=== PATIENT | male | born 1985 | race Caucasian/White ===

== ENCOUNTER 2017-02-09 06:12 | Inpatient (IN) | payer BC, OTHER ==
[2017-02-09] MEDS ORDERED: GADOBUTROL 10 ML VIAL IVP ONE (06:33)
[2017-02-09] MEDS ORDERED: LIDOCAINE 1% 2 ML INJ ONE (06:42)
[2017-02-09] MEDS ORDERED: ceFAZolin 2 GM/DEXTROSE 100 ML IV ONE (06:51)
[2017-02-09] MEDS ORDERED: LIDOCAINE 1% 2 ML INJ ID PRN (07:01)
[2017-02-09] MEDS ORDERED: LR 1,000 ML IV ONE (07:01)
[2017-02-09] MEDS ORDERED: BACITRACIN ZINC 14.2 GM OINTTUBE TP ONE (07:32)
[2017-02-09] MEDS ORDERED: METHYLENE BLUE 0.5% 50 MG/10 ML AMP ONE (07:32)
[2017-02-09] MEDS ORDERED: THROMBIN (BOVINE) 5,000 UNIT VIAL TP ONE (07:32)
--- NOTE | 2017-02-09 10:12 | PDHPUP ---
History & Physical Update H&P update statement: This history and physical update is based on an assessment of the patient which was completed after admission or registration (within 24 hours), but prior to the surgery/procedure. H&P update: H&P reviewed & patient examined, no change in patient's condition since H&P completed
[2017-02-09] MEDS ORDERED: MIDAZOLAM 2 MG/2 ML VIAL ONE (10:40)
[2017-02-09] MEDS ORDERED: PROPOFOL/EMULSION 500 MG/50 ML BOTTLE IV ONE ×3 (10:40→13:00)
[2017-02-09] MEDS ORDERED: fentaNYL 100 MCG/2 ML INJ ONE ×2 (10:40→12:10)
--- NOTE | 2017-02-09 10:51 | PDANEPAE ---
ANE Past Medical History - Cardiovascular History Hx Hypertension: No Hx Arrhythmias: No Hx Chest Pain: No Hx Coronary Artery / Peripheral Vascular Disease: No Hx CHF / Valvular Disease: No Hx Palpitations: No - Pulmonary History Hx COPD: No Hx Asthma/Reactive Airway Disease: No Hx Recent Upper Respiratory Infection: No Hx Oxygen in Use at Home: No Hx Sleep Apnea: No Sleep Apnea Screening Result - Last Documented: Negative - Neurologic History Hx Cerebrovascular Accident: No Hx Seizures: No Hx Dementia: No - Endocrine History Hx Diabetes: No - Renal History Hx Renal Disorders: No - Liver History Hx Hepatic Disorders: No - Neurological & Psychiatric Hx Hx Neurological and Psychiatric Disorders: Yes Neurological / Psychiatric History Comment: BLURRED VISION LT SIDE PAST 2 MONTHS - Cancer History Hx Cancer: No - Congenital Disorder History Hx Congenital Disorders: No - GI History Hx Gastrointestinal Disorders: No - Other Health History Other Health History: POST NASAL DRIP - Chronic Pain History Chronic Pain: No - Surgical History Prior Surgeries: NONE ANE Review of Systems Review of Systems: - Exercise capacity METS (RN): 5 METS ANE Patient History - Allergies Allergies/Adverse Reactions: No Known Allergies Allergy (Unverified 02/01/17 12:58) - Home Medications Home Medications: Triamcinolone Acetonide [Nasacort] 1 spray NS BID 02/01/17 [Last Taken Unknown] - NPO status NPO Since - Liquids (Date): 02/08/17 NPO Since - Liquids (Time): 20:00 NPO Since - Solids (Date): 02/08/17 NPO Since - Solids (Time): 20:00 - Smoking Hx Smoking Status: Never smoked - Family Anes Hx Family Hx Anesthesia Complications: NEG ANE Labs/Vital Signs - Vital Signs Blood Pressure: 115/71 Heart Rate: 71 Respiratory Rate: 16 O2 Sat (%): 94 Height: 165.1 cm Weight: 107.955 kg ANE Physical Exam - Airway Mallampati Score: Class 3 Mouth exam: normal dental/mouth exam, poor dentition - Pulmonary Pulmonary: no respiratory distress, no rales or rhonchi - Cardiovascular Cardiovascular: no murmur, rub, or gallop - ASA Status ASA Status: III ANE Anesthesia Plan Anesthesia Plan: general endotracheal anesthesia Lines/Monitors: arterial line, additional IV
[2017-02-09] MEDS ORDERED: DEXAMETHASONE 4 MG/ML VIAL ONE ×2 (10:52→12:09)
[2017-02-09] MEDS ORDERED: ONDANSETRON 4 MG/2 ML VIAL ONE (10:52)
[2017-02-09] MEDS ORDERED: SUGAMMADEX SODIUM 200 MG/2 ML VIAL IVP ONE (10:52)
[2017-02-09] MEDS ORDERED: RANITIDINE 50 MG/2 ML VIAL ONE (10:52)
[2017-02-09] MEDS ORDERED: ROCURONIUM 100 MG/10 ML VIAL ONE ×2 (10:52→12:09)
[2017-02-09] MEDS ORDERED: ALBUMIN 5% 250 ML BOTTLE IV ONE (11:01)
[2017-02-09] MEDS ORDERED: LIDOCAINE 1% 300 MG/30 ML SDV ONE (11:19)
[2017-02-09] MEDS ORDERED: LIDO/EPI 2%** Not for Epidural 20 ML MDV ONE (11:33)
[2017-02-09] MEDS ORDERED: SURGIFLO MATRIX KIT WITH THROMBIN TP ONE (11:41)
[2017-02-09] MEDS ORDERED: methylPREDNISolone SOD SUCC 125 MG/2 ML VIAL ONE (12:09)
[2017-02-09] MEDS ORDERED: DEXMEDETOMIDINE HCL 400 MCG in NS 100 ML IV SCH (12:30)
[2017-02-09] MEDS ORDERED: ACETAMINOPHEN 325 MG TAB PO PRN (12:30)
[2017-02-09 12:51] LABS: % IMMATURE GRANULYOCYTES 0.8 % (0.0-1.1); ABSOLUTE IMMATURE GRANULOCYTES 0.09 10^3/uL (0.00-0.10); ADD DIFF? NO; ADD MORPH? NO; ADD SCAN? NO; ATYPICAL LYMPHOCYTE FLAG 0 (0-99); FRAGMENT RBC FLAG 0 (0-99); HEMATOCRIT 40.5 % (40.0-51.0); HEMOGLOBIN 13.5 g/dL (13.7-17.5); LEFT SHIFT FLG 0 (0-99); LIPEMIA HEMOLYSIS FLAG 80 (0-99); MEAN CELL HEMOGLOBIN 30.1 pg (27.9-34.1); MEAN CELL HEMOGLOBIN CONCENTR. 33.3 g/dL (32.4-36.7); MEAN CELL VOLUME 90.4 fL (81.5-99.8); MEAN PLATELET VOLUME 9.3 fL (8.7-11.7); PLATELET CLUMPS FLAG 0 (0-99); PLATELET COUNT 357 10^3/uL (150-400); RED BLOOD CELL COUNT 4.48 10^6/uL (4.40-6.38); RED CELL DISTRIBUTION WIDTH 13.2 % (11.5-15.2)
[2017-02-09] MEDS ORDERED: OXYCODONE/APAP 5/325 TAB PO PRN (12:54)
[2017-02-09 13:18] LABS: ALBUMIN 4.2 g/dL (3.5-5.0); ANION GAP 16 mEq/L (8-16); ASPARTATE AMINOTRANSFERASE 22 IU/L (17-59); BILIRUBIN,TOTAL 0.8 mg/dL (0.1-1.4); CALCIUM 9.2 mg/dL (8.5-10.4); CARBON DIOXIDE 20 mEq/l (22-31); CHLORIDE 104 mEq/L (97-110); CREATININE 0.8 mg/dL (0.7-1.3); GLOMERULAR FILTRATION RATE > 60; GLUCOSE 151 mg/dL (70-100); LACTATE DEHYDROGENASE 621 IU/L (313-618); MAGNESIUM 1.8 mg/dL (1.6-2.3); POTASSIUM 3.4 mEq/L (3.5-5.2); SODIUM 140 mEq/L (134-144)
--- NOTE | 2017-02-09 13:23 | POSTOPPROG ---
Post Op Note Date of Operation: 02/09/17 Surgeon: Sheron Das [employer] Operations Rep: Second Surgeon- Dr. Machado Anesthesia: GET(General Endotracheal) Pre-op Diagnosis: Pituitary mass Post-op Diagnosis: same Procedure: Transphenoidal approach for resection of mass and placement of lumbar drain Findings: See operative report Inf/Abcess present in the surg proc area at time of surgery?: No Depth: Organ Space EBL: 50-100 Drains: Other (Lumbar Drain) SOAP Progress Note Assessment/Plan: Assessment: Plan: S: In recovery, stable. O: NAD, VSS Nasal packing in place PERRL, EOMI vision grossly intact No droop BROWN X4 A: 31 yo male sp transphenoidal approach for resection of mass. 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 If CSF starts leaking out the nose, call Dr. Cook prior to opening up the drain. 02/09/17 13:16 02/09/17 14:19 Objective: Vital Signs Temp Pulse Resp BP Pulse Ox 37 C 71 16 115/71 94 02/09/17 08:18 02/09/17 10:50 02/09/17 10:50 02/09/17 10:50 02/09/17 10:50 Laboratory Results 02/09/17 Unknown
[2017-02-09] MEDS ORDERED: MEPERIDINE 25 MG/ML SYR IVP PRN (14:08)
[2017-02-09] MEDS ORDERED: fentaNYL 100 MCG/2 ML INJ IVP PRN (14:08)
[2017-02-09] MEDS ORDERED: NALOXONE HCL 0.4 MG/ML INJ IVP PRN (14:08)
[2017-02-09] MEDS ORDERED: ONDANSETRON 4 MG/2 ML VIAL IVP PRN ×2 (14:08→14:50)
[2017-02-09] MEDS ORDERED: DEXAMETHASONE 4 MG/ML VIAL IVP PRN (14:08)
[2017-02-09] MEDS ORDERED: ALBUTEROL 3 ML DEYVIAL IH PRN (14:08)
[2017-02-09] MEDS ORDERED: PHENYLEPHRINE HCL 100 MCG/ML SYR ONE (14:28)
--- NOTE | 2017-02-09 14:47 | POSTANESTH ---
Post Anesthetic Evaluation Cardiovascular Status: Normal, Stable Respiratory Status: Normal, Stable Level of Consciousness/Mental Status: Can Participate in Eval Pain Control: Adequate, Prn Tx Ordered Nausea/Vomiting Control: Adequate, Prn Tx Ordered Complications Possibly Related to Anesthesia: None Noted
[2017-02-09] MEDS ORDERED: POLYETHYLENE GLYCOL 3350 17 GM PKT PO PRN (14:50)
[2017-02-09] MEDS ORDERED: LACTULOSE 20 GM/30 ML UDCUP PO PRN (14:50)
[2017-02-09] MEDS ORDERED: BISACODYL 10 MG SUPP PR PRN (14:50)
[2017-02-09] MEDS ORDERED: MAGNESIUM HYDROXIDE 30 ML UDCUP PO PRN (14:50)
[2017-02-09] MEDS ORDERED: ONDANSETRON DISINTEGRATING 4 MG TAB PO PRN (14:50)
[2017-02-09] MEDS: HYDROCORTISONE 10 MG TAB PO SCH ×2 (16:09→21:45)
[2017-02-09] MEDS ORDERED: hydrALAZINE 20 MG/ML VIAL IVP PRN (18:12)
[2017-02-09] MEDS: KETOROLAC 15 MG/1 ML SDV IVP PRN (18:37)
[2017-02-09] MEDS: ceFAZolin 2 GM/DEXTROSE 100 ML IV SCH (19:38)
[2017-02-09] MEDS: FAMOTIDINE 20 MG TAB PO SCH (21:41)
[2017-02-09] MEDS: SENNOSIDES/DOCUSATE SODIUM TAB PO SCH (21:41)
--- NOTE | 2017-02-09 23:22 | GCON ---
[f rep st] CONSULTATION INTENSIVE CARE CONSULTATION. Patient examined postoperatively after resection of a pituitary mass. The patient is a pleasant, 31- year-old, white male, without past medical history. He had presented to Neurosurgery with a week of blurry vision. MRI revealed a cystic lesion extending upward from the sella with compression of the optic chiasm. 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 He underwent a transsphenoidal approach for resection of the mass and placement of a lumbar drain. In discussion w ith the patient, he states overall, he is feeling quite well. He is breathing easily, though his nos e is currently uncomfortable. He denies any chest pain, pleuritic-type chest pain, or angina equival ent. No cough or production of sputum. PAST MEDICAL HISTORY: None. PAST SURGICAL HISTORY: None. ALLERGIES: No known allergies to medications. SOCIAL HISTORY: No history of tobacco use. Infrequent alcohol use. PHYSICAL EXAMINATION: VITAL SIGNS: Blood pressure is 144/80, pulse 67, respirations 12, temperature 35.8, oxygen saturation 100% on 10 L. GENERAL: He is a moderately overweight but very pleasant 31- year-old white male who is resting comfortably in no acute distress. HEENT: Eyes are PERRLA, EOMI. Nose is currently packed. Throat shows no erythema or tonsillar hypertrophy. NECK: Supple. There is no cervical adenopathy. HEART: Regular rate and rhythm without murmurs, rubs, or gallops. LUNG S: Clear to auscultation. No wheeze or rhonchi. ABDOMEN: Soft, nontender. Bowel sounds are prese nt in all 4 quadrants. EXTREMITIES: No clubbing, cyanosis, or edema. LABORATORIES: White count 11, hemoglobin 13, hematocrit 40, platelet count 357. Sodium 140, potassi um 3.4, chloride 104, CO2 is 20, BUN 14, creatinine 0.8, glucose is 151. IMPRESSION: 1. Pituitary tumor. 2. Status post transsphenoidal resection. 3. Pain currently tolerated. RECOMMENDATIONS: 1. Continue pain control. 2. Continue supplemental oxygen. 3. DVT and PE prophylaxis. 4. Stress ulcer prophylaxis. /[id number]/MODL
[2017-02-10] MEDS: KETOROLAC 15 MG/1 ML SDV IVP PRN ×2 (00:19→15:06)
[2017-02-10] MEDS: ceFAZolin 2 GM/DEXTROSE 100 ML IV SCH (03:54)
[2017-02-10 06:11] LABS: ANION GAP 13 mEq/L (8-16); CALCIUM 9.7 mg/dL (8.5-10.4); CARBON DIOXIDE 21 mEq/l (22-31); CHLORIDE 107 mEq/L (97-110); CREATININE 0.8 mg/dL (0.7-1.3); GLOMERULAR FILTRATION RATE > 60; GLUCOSE 132 mg/dL (70-100); POTASSIUM 4.3 mEq/L (3.5-5.2); SODIUM 141 mEq/L (134-144)
--- NOTE | 2017-02-10 09:07 | SOAPPROG ---
SOAP Progress Note Assessment/Plan: Assessment: POD 1 TSS pituitary macroadenoma. Doing well. No need for drip pad unless sig bleeding. RTC 1 week for splint removal. Ok to dc from ENT standpoint when ok from NSGY. PO CT looks good. Continue CSF leak precautions 6 weeks, he was given handout in clinic preoperatively. Plan: 02/10/17 09:05 Subjective: Doing well, denies pain, no HAs. No sig bleeding. No leak sxs. Objective: AFVSS humidified O2 mask no active bleeding PERRL EOMI OU Vital Signs Temp Pulse Resp BP Pulse Ox 36.8 C 77 13 144/77 H 100 02/10/17 09:00 02/10/17 09:00 02/10/17 09:00 02/10/17 09:00 02/10/17 09:00 Laboratory Results 02/09/17 Unknown 02/10/17 05:40 02/09/17 02/10/17 02/11/17 05:59 05:59 05:59 Intake Total 789 Output Total 2950 Balance -2161 ICD10 Worksheet Patient Problems: Problems Problem Status Onset Pituitary macroadenoma Acute - ICD10 Problem Qualifiers (1) Pituitary macroadenoma
--- NOTE | 2017-02-10 09:27 | NEUSURGPN ---
Assessment/Plan: Assessment: Plan: S: Patient is doing well. Has nasal pressure as expected. No saline taste in mouth, no dripping out nose. O: NAD, VSS Nasal splint in place PERRL, EOMI vision grossly intact No droop BROWN X4 A: 31 yo male sp transphenoidal approach for resection of mass. 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 Lumbar drain removed without difficulty. -Remove wong cut continue to monitor strict I's and O's -DC art line -Monitor urine output q1 hour, if greater than 250 in 1 hour or greater than 400 in 2 hours, order stat serum sodium and urine spec grav -Hydrocortisone taper X 3 days- then will go home on 20mg in the morning, and 10mg in the afternoon. Follow up with Dr. Us from endocrinology in 1-2 weeks. -No blowing nose or sipping through a straw for 6 weeks -No use of IS for this reason as well -Postop Head CT looks good -DVT: TEDs, SCDs, Heparin to start POD #2 -Dispo: hopeful for home 02/11 if all goes well -Seen by Dr. Cook as well -Ok to transfer to floor. 02/09/17 13:16 02/09/17 14:19 - Physician Discussed Patient with : [facility] Physical Exam - Vitals, I&O, Labs I and O 02/09/17 02/10/17 02/11/17 05:59 05:59 05:59 Intake Total 789 Output Total 2950 Balance -2161 Weight 107.955 kg Intake: Oral (ml) 400 IV Infused (ml) 389 ceFAZolin 2 GM/DEXTROSE 389 100 ml @ 200 mls/hr IV ONCALL ONE Rx#:[id number] Output: Urine (ml) 2950 Catheter 2950 Other: Output Comment Catheter 250 for 2 hours Vital Signs Temp Pulse Resp BP Pulse Ox 36.8 C 77 13 144/77 H 100 02/10/17 09:00 02/10/17 09:00 02/10/17 09:00 02/10/17 09:00 02/10/17 09:00 Laboratory Results 02/09/17 Unknown 02/10/17 05:40 ICD10 Worksheet Patient Problems: Problems Problem Status Onset Pituitary macroadenoma Acute Pituitary macroadenoma Acute
[2017-02-10] MEDS: FAMOTIDINE 20 MG TAB PO SCH ×2 (09:40→20:35)
[2017-02-10] MEDS: SENNOSIDES/DOCUSATE SODIUM TAB PO SCH ×2 (09:41→20:40)
[2017-02-10] MEDS: HYDROCORTISONE 10 MG TAB PO SCH ×2 (09:41→20:35)
--- NOTE | 2017-02-10 09:53 | ASMTCMCOM ---
CM Note CM Note Notes: Patient is POd #1 pituitary tumor resection. Per neurosurgery and ENT, he is doing well and may discharge home 02/11. I spoke with patient who states he has good support at home where he lives with his patient. He will schedule any recommended outpatient follow up appointments. Date Signed: 02/10/2017 09:52 AM Electronically Signed By:Viky Arroyo RN
--- NOTE | 2017-02-10 09:54 | GOP ---
[f rep st] OPERATIVE REPORT DATE OF OPERATION: 02/09/2017 SURGEON: Kaden Cook MD ANESTHESIA: General endotracheal. PREOPERATIVE DIAGNOSIS: Cystic pituitary mass with left vision loss. POSTOPERATIVE DIAGNOSIS: Cystic pituitary mass with left vision loss. PROCEDURE PERFORMED: 1. Endoscopic transsphenoidal resection of pituitary mass. 2. Stealth stereotactic neuronavigation for volumetric gross total resection of pituitary mass. 3. Placement of lumbar drain. 4. Amado of nasal septal flap (Dr. Machado). FINDINGS: Successful pituitary mass resection. SPECIMENS: Pituitary tumor for frozen and permanent section. ESTIMATED BLOOD LOSS: About 50 cc. INDICATIONS: The patient is a 31-year-old man who was been recently noticing some visual loss on the left side. He saw his dry press operator who ordered an MRI, and this showed a large cystic mass with suprasellar extension and compression on the optic chiasm. This would be consistent with a cystic pi tuitary adenoma versus craniopharyngioma. He was scheduled today electively for surgery. DESCRIPTION OF PROCEDURE: After informed consent was obtained from the patient, the patient was brou ght to the operating room and placed in supine position on the operating table. A formal time-out wa s performed, identifying the patient by name, medical record number, and date of . Preoperative antibiotics were given. The endotracheal tube was placed, and general endotracheal anesthesia was s moothly induced. All appropriate lines were placed by Anesthesia. The patient was then turned into the left lateral decubitus position. In the midline, at the level of the iliac crest, a 14-gauge Tuo hy needle was used to perform a lumbar puncture, at which time, clear CSF was obtained. The lumbar d rain was then threaded to a depth of about 30 cm and was working quite well. The Tuohy needle was re moved. The drain was secured to the skin using a nylon stitch and was sterilely dressed. This drain was then clamped and left for use during the case. The patient was turned back into the supine posi tion, and his head was slightly extended onto a horseshoe headrest. The stereotactic ENT Stealth uni t was registered to the scalp using known surface landmarks and checked for accuracy. At this point, the nose and face were prepped using Betadine, and a few epinephrine-soaked pledgets were placed in the nose for hemostasis. The head was prepped and draped in the normal sterile fashion. Procedure w as begun by Dr. Machado, and using the endoscope, she explored the nasal cavity and elevated a nasose ptal flap from the left side for possible use if there was a CSF leak. The superior ethmoid sinuses and the sphenoid sinus were widely opened giving us access to the sella. Her portion of procedure is dictated under separate note. After entry into the sphenoid sinus, I then used a small osteotome to create an opening in the middle of the sellar floor. Kerrison punches were used to widen the sellar opening, creating a craniotomy in this area. A sharp knife was then used to open the dura in a cruciate fashion, and immediately se en was some soft tissue suggestive of pituitary adenoma. Some gelatinous fluid was also seen from a cystic area of the tumor, which was almost like a colloid material. As this was removed, ring curett es were used to feel into the sella inferiorly and laterally, removing all the tumor in this location . This was sent for frozen section which returned as likely pituitary adenoma. The remainder of the tumor was sent for permanent section. As we continued removing tumor around this area, we were able to visualize the arachnoid membrane at the posterior and superior aspects of the cavity. There was still some tumor in the cystic portion superiorly, and this was removed largely with the ring curette s. At this point, the sella was empty. 20 cc of sterile saline was then infused into the lumbar david in, which pushed the arachnoid membrane down and pushed another roughly 5 mm piece of tumor out in th is area. We then set the lumbar drain to drain, and we carefully inspected the cavity with a 30-degr ee endoscope. The arachnoid was visualized all around the cavity, and the yellowish tissue at the ochoa perior and anterior aspects appeared to be the normal pituitary gland. I felt around a few other saravanan es into the sella with dissectors and ring curettes, and I did not feel any other signs of tumor arou nd the edges. There was no CSF leak at all. The bleeding was controlled using Floseal and a piece o f Surgicel. The sellar opening was then covered with some DuraSeal. At this point, Dr. Machado re-p laced the nasoseptal flap onto the nasal septum, as we did not need it for any CSF leak control. She then placed splints into the nose, the nasal cavity was irrigated, and all the blood was suctioned a way. The patient was then awakened in the operating room and was transferred to the ICU in stable co ndition. There were no operative complications. I was scrubbed and present for the entire procedure . CO-SURGEON: Kisha Machado MD FLUIDS AND URINE OUTPUT: Per the anesthesia record. COUNTS: All sponge and needle counts were correct at the end of the case. /[id number]/MODL
[2017-02-10 13:58] VITALS: RESP 16
--- NOTE | 2017-02-11 08:03 | SOAPPROG ---
[facility] Progress Note Assessment/Plan: Assessment: 31 yo M POD #2 transphenoidal resection of pituitary adenoma Plan: stable and doing well overall PT/OT on hydrocortisone scd/jg/heparin for dvt prophylaxis watch for VANESSA pierre dc home today please call with neuro changes discussed with Dr Cook 02/11/17 08:00 Subjective: no headaches, no N/V. Objective: Vital Signs Temp Pulse Resp BP Pulse Ox 36.9 C 86 16 123/78 H 96 02/11/17 00:00 02/11/17 00:00 02/11/17 00:00 02/11/17 00:00 02/11/17 00:00 Laboratory Results 02/09/17 Unknown 02/10/17 05:40 02/10/17 02/11/17 02/12/17 05:59 05:59 05:59 Intake Total 789 900 Output Total 2950 940 Balance -2161 -40 AAOx4, +FC PERRL, no facial droop 5/5 + light touch no rhinorrhea ICD10 Worksheet Patient Problems: Problems Problem Status Onset Pituitary macroadenoma Acute Pituitary macroadenoma Acute
[2017-02-11 08:11] VITALS: BP 111/69; PULSE 73; TEMP 97.7; O2SAT 98
[2017-02-11] MEDS: SENNOSIDES/DOCUSATE SODIUM TAB PO SCH (08:37)
[2017-02-11] MEDS: FAMOTIDINE 20 MG TAB PO SCH (08:37)
[2017-02-11] MEDS: KETOROLAC 15 MG/1 ML SDV IVP PRN (08:39)
[2017-02-11] MEDS ORDERED: HEPARIN 5,000 UNIT/0.5 ML SYR SC SCH (09:00)
[2017-02-11] MEDS ORDERED: FLU VACC QS 2017-18 (3YR+)/PF 0.5 ML SYR (FLUARIX QUAD) IM ONE (09:33)
--- NOTE | 2017-02-11 14:29 | ASDISCHSUM ---
Discharge Information Plan Status:Home with No Needs Medically Cleared to Leave: Discharge Date:02/11/2017 01:32 PM CM D/C Disposition:Home, Routine, Self-Care ADT D/C Disposition:Home, Routine, Self-Care Projected Discharge Date:02/11/2017 01:32 PM Transportation at D/C: Discharge Delay Reason: Follow-Up Date:02/11/2017 01:32 PM Discharge Slot: Final Diagnosis: Placement Information Patient Contact Information Contact Name:TERESITA Relationship:Father Address: Work Phone: City: [facility] Phone: State/Zip Code: Email: Financial Information Financial Class:HMO and PPO Plans Primary Plan Desc: OUT OF STATE PPO Primary Plan Number:[id number] Secondary Plan Desc: Secondary Plan Number: Assessment Information [facility] CM Progress Note CM Note CM Note Notes: Patient is POd #1 pituitary tumor resection. Per neurosurgery and ENT, he is doing well and may discharge home 02/11. I spoke with patient who states he has good support at home where he lives with his patient. He will schedule any recommended outpatient follow up appointments. Date Signed: 02/10/2017 09:52 AM Electronically Signed By:Viky Arroyo RN Intervention Information
--- NOTE | 2017-02-11 15:30 | ASMTCMCOM ---
CM Note CM Note Notes: Pt s/p pituitary tumor resection. Discharging home today with no CM needs. Date Signed: 02/11/2017 03:29 PM Electronically Signed By:ALEENA Arambula
--- NOTE | 2017-02-11 22:33 | GOP ---
[f rep st] OPERATIVE REPORT DATE OF OPERATION: 02/09/2017 SURGEON: Kisha Machado MD CO-SURGEON/NEUROSURGEON: Kaden Cook MD ANESTHESIA: General. PREOPERATIVE DIAGNOSIS: Large pituitary mass with suprasellar extension. POSTOPERATIVE DIAGNOSIS: Large pituitary mass with suprasellar extension. PROCEDURE PERFORMED: 1. Endoscopic transsphenoidal approach to the pituitary. 2. Stereotactic volumetric navigation of the paranasal sinuses and intradural skull base utilizing the [employer] Fusion system. FINDINGS: The patient was found to have a very large sellar mass, which on frozen section was identified as a likely adenoma. It did have a mixed solid and cystic component. He also had bilateral Onodi cells that were identified and included in the sphenoid dissection. There was no intraoperative CSF leak, and a minimal closure was done. ESTIMATED BLOOD LOSS: Minimal. COMPLICATIONS: none PREOPERATIVE NOTE: The patient is a very pleasant 31-year-old man who has a history of some visual field deficits. On MRI, he was noted to have a large 2- 3 cm sellar mass with suprasellar extension and compression on the optic nerve. He saw Dr. Cook, and they determined that he would need to undergo surgery, so I was called to assist. DESCRIPTION OF PROCEDURE: The patient was first seen in the preoperative area, where informed consent was obtained. He was then brought back to the operating room, where Anesthesia sedated and intubated him. The bed was turned 180 degrees. A universal time-out was performed and confirmed. At this point, Dr. Cook performed a lumbar drain, which will be dictated separately. After he was done, the patient was prepped and draped in a sterile fashion for our portion of the procedure. The [employer] Fusion headpiece was placed on the forehead, and then registered and confirmed to be tracking accurately. After this was confirmed to be tracking accurately, epi-soaked pledgets were placed within the nares bilaterally, and then they were removed after a few minutes. At this point, 2% lidocaine with 1:100,000 epinephrine was injected under visualization with a 0-degree scope into the left side of the nasal septum, as well as back at the sphenoid rostrum. It was felt after discussion with Dr. Cook preoperatively that it was very likely we might need a septal flap, and the decision was made to elevate this preoperatively in case we needed it. So at this point, with the 0-degree scope, the inferior and middle turbinates on each side were lateralized using a Crum, then giving me good visualization back to the sphenoid rostrum. Once this was done, the zero-degree scope was used, and a straight Lexx-Cut was used to take down the inferior one-third of the superior turbinate on the left. Then, a microdebrider was used to clean this area up. Once this was done, I was able to visualize the sphenoid os, which was slightly more inferior than normal secondary to an Onodi cell. The sphenoid os was gently opened more widely, superiorly and laterally, using the mushroom punch. Once this was completely visualized, a septal flap was traced out using a Tucker-tipped Bovie that had an elongated tip at a low setting. The superior incision was made just at the edge of the sphenoid os. It came superiorly about 1.5 cm below the cribriform plate and then anteriorly just past the middle turbinate head. I then made an incision inferiorly along the choana and then came down along the septum to the junction of the septum and the nasal floor. I then proceeded anteriorly to the level of the previous incision. Then, an inferior incision was made to connect these two. A caudal elevator was used to elevate the septal flap off the underlying cartilage and bone. Then, once the septal flap was completely elevated and released from the surrounding tissues, it was placed in the nasopharynx for safekeeping until the procedure. At this point, I then performed the sphenoidotomy on the right side in the exact same fashion, widening it with the mushroom punch. At this point, I then came back over to the left side. A posterior septectomy was performed. An incision was made through the right side of the mucosal tissue, thereby creating a window. Then, this was elevated off the sphenoid rostrum and bone on the right side, thereby allowing us to visualize the sphenoid on both sides, as well as the bone was completely denuded from the rostrum. Once this was done , then the up-and-down biting Kerrisons were used to widen the sphenoid superiorly up to the skull base and laterally as far as we could go, as well as inferiorly down to the floor of the sphenoid. On the right, I came across the septal branch and it was cauterized with a suction cautery. A straight trucut was used to take down more of the posterior septum, as well as the intersinus septum. There was very thick bone basically at the rostrum and the floor of the sphenoid. So, the [place] with the nasal tip was used to take this area down until it was flush with the floor. Once this was done, we were noted to have good access to the sella bilaterally. He did have the 2 Onodi cells, and the partition between the Onodi and the sphenoid was taken down using the straight Lexx-Cut as well. Once this was completely opened, we could see the opticocarotid recesses bilaterally. We confirmed all of the major structures in the [employer] Fusion system. Then, at this point, I went over to the patient's left side. I used the scope through the left nostril while Dr. Cook came over to the right side to perform the pituitary excision. This will be dictated under a separate procedure. After the complete tumor was removed and a 30-degree scope had been used to evaluate the areas laterally and superiorly, and that we were not leaving any significant tumor tissue, we did not have a CSF leak; so at this point, it was noted that we did not need the septal flap. So I went back over to the right side after Dr. Cook placed a small amount of Surgicel in the sellar region and then covered this with DuraSeal. At this point, I then unfolded the septal flap and took it out of the nasopharynx. I tacked this to the remaining anterior mucosa using a 4-0 Vicryl in an interrupted fashion. Then, once this was done, the nasal cavity was irrigated out gently with saline and suctioned clear. The nasopharynx was suctioned clear. Then, Johnson splints that were cut to size were placed on the left side of the septum and then sutured into the caudal portion of the septum using a 3-0 Prolene. At this point, the patient was turned back over to Anesthesia, where he was awakened, extubated, and taken to the PACU in stable condition. There were no complications, and he tolerated the procedure well. /[id number]/MODL MTDD
== END 2017-02-11 13:32 | disposition home or self-care (01) | DRG 615 ==
LOC: F3N 06:12 → F2N 14:33 → F3N 02-10 15:15
PROVIDERS: ADMIT Neurological Surgery; ATTEND Neurological Surgery
PROC: 009U30Z Drainage of Spinal Canal with Drainage Device, Percutaneous Approach (ICD-10-PCS; principal; 2017-02-09 10:30)
PROC: 0GB04ZX Excision of Pituitary Gland, Percutaneous Endoscopic Approach, Diagnostic (ICD-10-PCS; principal; 2017-02-09 10:30)
PROC: 8E09XBZ Computer Assisted Procedure of Head and Neck Region (ICD-10-PCS; principal; 2017-02-09 10:30)
DX: D35.2 Benign neoplasm of pituitary gland (principal)
CPT/HCPCS: 97116-GP; 97161-GP; 97165-GO; A9585; J0171; J0690; J1100; J1885; J2250; J2370; J2405; J2704; J2780; J3010; P9041; Q9968